=== PATIENT | male | born 1955 | race Caucasian/White ===

== ENCOUNTER 2017-05-04 07:54 | Outpatient (CLI) | payer MEDICAID ==
[2017-05-04] MEDS ORDERED: XYLOCAINE TOPICAL 4% TP ONE (08:55)
== END 2017-05-04 07:55 | disposition home or self-care (01) ==
LOC: WOUND 07:54
PROVIDERS: ATTEND Surgery
DX: E11.622 Type 2 diabetes mellitus with other skin ulcer (principal); L97.311 Non-pressure chronic ulcer of right ankle limited to breakdown of skin; I25.10 Atherosclerotic heart disease of native coronary artery without angina pectoris; I10 Essential (primary) hypertension
CPT/HCPCS: 36415; 83036

== ENCOUNTER 2017-05-11 08:00 | Outpatient (CLI) | payer MEDICAID ==
[2017-05-11] MEDS ORDERED: XYLOCAINE TOPICAL 4% TP ONE ×2 (08:19→08:21)
== END 2017-05-11 08:01 | disposition home or self-care (01) ==
LOC: WOUND 08:00
PROVIDERS: ATTEND Surgery
DX: E11.622 Type 2 diabetes mellitus with other skin ulcer (principal); L97.812 Non-pressure chronic ulcer of other part of right lower leg with fat layer exposed; I25.10 Atherosclerotic heart disease of native coronary artery without angina pectoris; I10 Essential (primary) hypertension; Z98.49 Cataract extraction status, unspecified eye

== ENCOUNTER 2017-05-18 07:52 | Outpatient (CLI) | payer MEDICAID ==
[2017-05-18] MEDS ORDERED: XYLOCAINE TOPICAL 4% TP ONE ×2 (08:15→10:17)
== END 2017-05-18 07:53 | disposition home or self-care (01) ==
LOC: WOUND 07:52
PROVIDERS: ATTEND Surgery
DX: E11.622 Type 2 diabetes mellitus with other skin ulcer (principal); L97.812 Non-pressure chronic ulcer of other part of right lower leg with fat layer exposed; I25.10 Atherosclerotic heart disease of native coronary artery without angina pectoris; I10 Essential (primary) hypertension; Z98.49 Cataract extraction status, unspecified eye

== ENCOUNTER 2017-05-25 08:05 | Outpatient (CLI) | payer MEDICAID ==
[2017-05-25] MEDS ORDERED: XYLOCAINE TOPICAL 4% TP ONE ×2 (08:22→08:25)
== END 2017-05-25 08:06 | disposition home or self-care (01) ==
LOC: WOUND 08:05
PROVIDERS: ATTEND Surgery
DX: E11.622 Type 2 diabetes mellitus with other skin ulcer (principal); L97.312 Non-pressure chronic ulcer of right ankle with fat layer exposed; I25.10 Atherosclerotic heart disease of native coronary artery without angina pectoris; I10 Essential (primary) hypertension; Z98.49 Cataract extraction status, unspecified eye

== ENCOUNTER 2017-06-01 07:58 | Outpatient (CLI) | payer MEDICAID ==
[2017-06-01] MEDS ORDERED: XYLOCAINE TOPICAL 4% TP ONE ×2 (08:29→14:46)
[2017-06-01] MEDS ORDERED: AD OINTMENT TP ONE (08:51)
[2017-06-02] MEDS ORDERED: AD OINTMENT TP SCH (10:00)
== END 2017-06-01 07:59 | disposition home or self-care (01) ==
LOC: WOUND 07:58
PROVIDERS: ATTEND Surgery
DX: E11.622 Type 2 diabetes mellitus with other skin ulcer (principal); L97.312 Non-pressure chronic ulcer of right ankle with fat layer exposed; I25.10 Atherosclerotic heart disease of native coronary artery without angina pectoris; I10 Essential (primary) hypertension; Z98.49 Cataract extraction status, unspecified eye
CPT/HCPCS: A6250

== ENCOUNTER 2017-06-08 07:59 | Outpatient (CLI) | payer MEDICAID ==
[2017-06-08] MEDS ORDERED: XYLOCAINE TOPICAL 4% TP ONE ×2 (08:19→08:23)
== END 2017-06-08 08:00 | disposition home or self-care (01) ==
LOC: WOUND 07:59
PROVIDERS: ATTEND Surgery
DX: E11.622 Type 2 diabetes mellitus with other skin ulcer (principal); L97.312 Non-pressure chronic ulcer of right ankle with fat layer exposed; I25.10 Atherosclerotic heart disease of native coronary artery without angina pectoris; I10 Essential (primary) hypertension; Z98.49 Cataract extraction status, unspecified eye
CPT/HCPCS: 97597

== ENCOUNTER 2017-06-15 07:56 | Outpatient (CLI) | payer MEDICAID ==
[2017-06-15] MEDS ORDERED: XYLOCAINE TOPICAL 4% TP ONE ×2 (08:20→08:21)
== END 2017-06-15 07:57 | disposition home or self-care (01) ==
LOC: WOUND 07:56
PROVIDERS: ATTEND Surgery
DX: E11.622 Type 2 diabetes mellitus with other skin ulcer (principal); L97.312 Non-pressure chronic ulcer of right ankle with fat layer exposed; I25.10 Atherosclerotic heart disease of native coronary artery without angina pectoris; I10 Essential (primary) hypertension; Z98.49 Cataract extraction status, unspecified eye